=== PATIENT | female | born 1995 | race Hispanic/Latino ===

== ENCOUNTER → 2019-06-08 | Emergency (ER) | payer BC ==
[~2019-06-08] VITALS: Ht 165.1 cm; Wt 72.6 kg
--- NOTE | 2019-06-08 19:05 | NUR ---
TRANSFER INITIATED TO [facility], SPOKE TO SILVANO ESPINAL
--- NOTE | 2019-06-08 19:11 | NUR ---
DR. LAIRD SPEAKING TO OPTHAMOLOGIST AT [facility]
--- NOTE | 2019-06-08 19:40 | Diagnostic Imaging Report ---
EXAMINATION: Head CT without contrast. HISTORY:Right eye partial blindness, peripheral vision loss. COMPARISON:None. TECHNIQUE: Multidetector axial images were obtained from the foramen magnum to the vertex without contrast. The images were reconstructed using brain and bone algorithms. Thin section brain images were reformatted into coronal and sagittal planes. Dose modulation, iterative reconstruction, and/or weight based adjustment of the mA/kV was utilized to reduce the radiation dose to as low as reasonably achievable. Intravenous contrast: None IMAGE QUALITY: Acceptable. FINDINGS: Skull/scalp: No lytic or blastic. lesions. No surgical changes. Parenchyma: No abnormal density. No acute hemorrhage, mass or acute major vascular territorial infarct. Arteries: No density suggestive of thrombosis. Dural sinuses: No abnormal density suggestive of thrombosis. Ventricles: No hydrocephalus or displacement. Extra-axial spaces: No abnormal density. Brain volume: Normal for age. Craniocervical junction: No mass, Chiari malformation, or basilar invagination. Sella: No mass. Paranasal/mastoid sinuses: Imaged portions unremarkable. IMPRESSION: No intracranial abnormality. Signed by: Dr. Ritu Friend M.D. on 06/08/2019 7:36 PM
--- NOTE | 2019-06-08 20:08 | NUR ---
REPORT CALLED TO NURSE JONES
--- OUTSIDE RECORDS SUMMARY | 2019-06-14 12:09 | XMS REPORT ---
Author Author [facility] Address Unknown Phone Unavailable Care Team Providers Care Entry Level Receptionist Name Role Phone LAIRDJOSE Unavailable Unavailable Problems This patient has no known problems. Allergies, Adverse Reactions, Alerts This patient has no known allergies or adverse reactions. Medications This patient has no known medications. Results Test Description Test Time Test Comments Text Results Atomic Results Result Comments CT BRAIN WO 2019-06-08 19:33:00 [place] [address] Patient Name: GINNY DSOUZA MR #: [id number] : 1995 Age/Sex: 24/F Req #: [id number] Adm Physician: Ordered by: JOSE KENNEDY MANAGER [employer]URING Report #: [id number] Location: ER Room/Bed: Procedure: [id number] CT/CT BRAIN WO Exam Date: 06/08/19 Exam Time: 1855 REPORT STATUS: Signed EXAMINATION: Head CT without contrast. HISTORY:Right eye partial blindness, peripheral vision loss. COMPARISON:None. TECHNIQUE: Multidetector axial images were obtained from the foramen magnum to the vertex without contrast. The images were reconstructed using brain and bone algorithms. Thin section brain images were reformatted into coronal and sagittal planes. Dose modulation, iterative reconstruction, and/or weight based adjustment of the mA/kV was utilized to reduce the radiation dose to as low as reasonably achievable. Intravenous contrast: None IMAGE QUALITY: Acceptable. FINDINGS: Skull/scalp: No lytic or blastic. lesions. No surgical changes. Parenchyma: No abnormal density. No acute hemorrhage, mass or acute major vascular territorial infarct. Arteries: No density suggestive of thrombosis. Dural sinuses: No abnormal density suggestive of thrombosis. Ventricles: No hydrocephalus or displacement. Extra-axial spaces: No abnormal density. Brain volume: Normal for age. Craniocervical junction: No mass, Chiari malformation, or basilar invagination. Sella: No mass. Paranasal/mastoid sinuses: Imaged portions unremarkable. IMPRESSION: No intracranial abnormality. Signed by: Dr. Ritu Friend M.D. on 06/08/2019 7:36 PM Dictated By: RITU FRIEND MD 34 Transcribed By: NAHOMY on 06/08/191935 COPY TO: JOSE KENNEDY NP
== END | disposition short-term general hospital (02) ==
LOC: ER 18:15
DX: H53.131 Sudden visual loss, right eye (principal); J45.909 Unspecified asthma, uncomplicated
CPT/HCPCS: 70450; 99284